=== PATIENT | male | born 1995 | race Caucasian/White ===

== ENCOUNTER 2018-01-15 14:30 | Outpatient (CLI) | payer BC, OTHER ==
[2018-01-15 18:59] LABS: BASOPHILS % (AUTO) 0.8 %; EOSINOPHILS # (AUTO) 0.1 10^3/uL (0.0-0.7); EOSINOPHILS % (AUTO) 1.7 %; HGB - HEMOGLOBIN 15.2 g/dL (14.0-18.0); LYMPHOCYTES # (AUTO) 1.8 10^3/uL (1.5-3.5); LYMPHOCYTES % (AUTO) 38.3 %; MEAN CORPUSCULAR HEMOGLOBIN 30.2 pg (27.0-31.0); MEAN CORPUSCULAR HGB CONC 34.4 g/dL (32.0-36.0); MEAN CORPUSCULAR VOLUME 87.7 fL (80.0-94.0); MEAN PLATELET VOLUME 9.1 fL (7.4-11.4); MONOCYTES # (AUTO) 0.5 10^3/uL (0.0-1.0); MONOCYTES % (AUTO) 10.7 %; NEUTROPHILS # (AUTO) 2.2 10^3/uL (1.5-6.6); NEUTROPHILS % (AUTO) 48.5 %; PLT - PLATELET COUNT 195 10^3/uL (130-450); RED BLOOD COUNT 5.04 10^6/uL (4.70-6.10); RED CELL DISTRIBUTION WIDTH 13.6 % (12.0-15.0); WHITE BLOOD COUNT 4.6 x10^3/uL (4.8-10.8)
[2018-01-15 19:13] LABS: ALBUMIN 4.2 g/dL (3.2-5.5); ALBUMIN/GLOBULIN RATIO 1.4 (1.0-2.2); ALKALINE PHOSPHATASE 41 IU/L (42-121); ALT ALANINE AMINOTRANSFERASE 72 IU/L (10-60); AST ASPARTATE AMINOTRANSFERASE 37 IU/L (10-42); BUN - BLOOD UREA NITROGEN 17 mg/dL (6-20); CARBON DIOXIDE - CO2 27 mmol/L (21-32); CHLORIDE 100 mmol/L (101-111); CHOL/HDL RATIO 7.1 (<5.0); CHOLESTEROL 228 mg/dL; CREATININE 0.7 mg/dL (0.6-1.2); GFR - MDRD 140 (>89); GLUCOSE 88 mg/dL (70-100); HDL CHOLESTEROL 32 mg/dL; LDL CHOLESTEROL,CALCULATED 150 mg/dL; LDL/HDL RATIO 4.7 (<3.6); SODIUM 136 mmol/L (135-145); TOTAL PROTEIN 7.3 g/dL (6.7-8.2); VLDL CHOLESTEROL 46 mg/dL
[2018-01-15 19:26] LABS: THYROID STIMULATING HORMONE 1.01 uIU/mL (0.34-5.60)
[2018-01-15 19:28] LABS: HB2 TOTAL 16.3 g/dL; HEMOGLOBIN A1C 0.6 g/dL; HEMOGLOBIN A1C % 5.5 % (4.6-6.2)
== END 2018-01-15 14:31 | disposition home or self-care (01) ==
LOC: LAB.WCP 14:30
PROVIDERS: ATTEND Family Medicine
DX: Z00.00 Encounter for general adult medical examination without abnormal findings (principal); Z13.220 Encounter for screening for lipoid disorders; Z13.1 Encounter for screening for diabetes mellitus
CPT/HCPCS: 36415; 80050; 80061; 82306; 82607; 82746; 83036; 83721

== ENCOUNTER 2018-05-31 11:55 | Outpatient (CLI) | payer BC ==
[2018-05-31 18:53] LABS: BASOPHILS % (AUTO) 0.7 %; EOSINOPHILS # (AUTO) 0.1 10^3/uL (0.0-0.7); HGB - HEMOGLOBIN 15.3 g/dL (14.0-18.0); LYMPHOCYTES # (AUTO) 2.3 10^3/uL (1.5-3.5); LYMPHOCYTES % (AUTO) 38.2 %; MEAN CORPUSCULAR HEMOGLOBIN 29.5 pg (27.0-31.0); MEAN CORPUSCULAR HGB CONC 32.6 g/dL (32.0-36.0); MEAN CORPUSCULAR VOLUME 90.6 fL (80.0-94.0); MEAN PLATELET VOLUME 9.6 fL (7.4-11.4); MONOCYTES # (AUTO) 0.6 10^3/uL (0.0-1.0); MONOCYTES % (AUTO) 10.5 %; NEUTROPHILS % (AUTO) 49.6 %; PLT - PLATELET COUNT 225 10^3/uL (130-450); RED BLOOD COUNT 5.18 10^6/uL (4.70-6.10); RED CELL DISTRIBUTION WIDTH 13.5 % (12.0-15.0)
[2018-05-31 19:22] LABS: TROPONIN I < 0.04 ng/mL (<0.49)
[2018-05-31 19:24] LABS: CREATINE KINASE MB 4.1 ng/mL (0.6-6.3)
[2018-05-31 19:32] LABS: ALBUMIN 4.4 g/dL (3.2-5.5); ALBUMIN/GLOBULIN RATIO 1.6 (1.0-2.2); ALKALINE PHOSPHATASE 65 IU/L (42-121); ALT ALANINE AMINOTRANSFERASE 83 IU/L (10-60); AST ASPARTATE AMINOTRANSFERASE 41 IU/L (10-42); BILIRUBIN,TOTAL 0.8 mg/dL (0.2-1.0); BUN - BLOOD UREA NITROGEN 13 mg/dL (6-20); CALCIUM 8.9 mg/dL (8.5-10.3); CARBON DIOXIDE - CO2 27 mmol/L (21-32); CHLORIDE 101 mmol/L (101-111); CHOL/HDL RATIO 5.4 (<5.0); CHOLESTEROL 195 mg/dL; CREATININE 0.8 mg/dL (0.6-1.2); GFR - MDRD 119 (>89); GLUCOSE 81 mg/dL (70-100); HDL CHOLESTEROL 36 mg/dL; LDL CHOLESTEROL,CALCULATED 121 mg/dL; LDL/HDL RATIO 3.4 (<3.6); SODIUM 136 mmol/L (135-145); TOTAL PROTEIN 7.2 g/dL (6.7-8.2); VLDL CHOLESTEROL 38 mg/dL
== END 2018-05-31 23:59 | disposition home or self-care (01) ==
LOC: LAB.WCP 11:55
PROVIDERS: ATTEND Family Medicine
DX: R07.89 Other chest pain (principal); E55.9 Vitamin D deficiency, unspecified; E78.5 Hyperlipidemia, unspecified
CPT/HCPCS: 36415; 80053; 80061; 82306; 82553; 83721; 84484; 85025; 85379

== ENCOUNTER 2019-08-15 17:58 | Outpatient (CLI) | payer BC | END 2019-08-15 17:59 | disposition short-term general hospital (02) | LOC: EMS 17:58 | PROVIDERS: ATTEND Surgery | DX: R20.0 Anesthesia of skin (principal); R94.31 Abnormal electrocardiogram [ECG] [EKG] | CPT/HCPCS: A0425; A0427 ==

== ENCOUNTER 2022-12-29 13:40 | Outpatient (CLI) | payer BC ==
--- NOTE | 2022-12-29 19:56 | XRAY Report ---
PROCEDURE: Ankle 3 View RT INDICATIONS: SPRAIN OF UNSPECIFIED LIGAMENT OF RIGHT ANKLE TECHNIQUE: 3 views of the ankle were acquired. COMPARISON: None. FINDINGS: Bones: Transverse fracture of the distal fibular metaphysis extending into the mortise joint. There is no significant displacement. No widening of the mortise joint. The distal tibia is intact. Posteri or and plantar calcaneal enthesophytes are present. Soft tissues: Soft tissue edema is seen over the lateral malleolus. IMPRESSION: Nondisplaced transverse intra-articular fracture of the distal fibula. Reviewed by: Umesh Guzman MD on 12/29/2022 7:55 PM PDT Approved by: Umesh Guzman MD on 12/29/2022 7:55 PM PDT Station ID: [id number]
== END 2022-12-29 13:41 | disposition home or self-care (01) ==
LOC: DI 13:40
PROVIDERS: ATTEND Physician Assistant Medical
DX: S82.424A Nondisplaced transverse fracture of shaft of right fibula, initial encounter for closed fracture (principal)

== ENCOUNTER 2023-01-08 18:54 | Emergency (ER) | payer BC ==
[2023-01-08 19:08] VITALS: O2SAT 98
[2023-01-08 19:33] LABS: BASOPHILS # (AUTO) 0.1 10^3/uL (0.0-0.1); BASOPHILS % (AUTO) 0.5 %; EOSINOPHILS # (AUTO) 0.1 10^3/uL (0.0-0.7); EOSINOPHILS % (AUTO) 1.2 %; HCT - HEMATOCRIT 45.9 % (42.0-52.0); HGB - HEMOGLOBIN 15.3 g/dL (14.0-18.0); LYMPHOCYTES # (AUTO) 3.6 10^3/uL (1.5-3.5); LYMPHOCYTES % (AUTO) 34.6 %; MEAN CORPUSCULAR HEMOGLOBIN 29.1 pg (27.0-31.0); MEAN CORPUSCULAR HGB CONC 33.3 g/dL (32.0-36.0); MEAN CORPUSCULAR VOLUME 87.4 fL (80.0-94.0); MEAN PLATELET VOLUME 10.5 fL (7.4-11.4); MONOCYTES # (AUTO) 0.9 10^3/uL (0.0-1.0); NEUTROPHILS # (AUTO) 5.6 10^3/uL (1.5-6.6); NEUTROPHILS % (AUTO) 54.4 %; PLT - PLATELET COUNT 261 10^3/uL (130-450); RED BLOOD COUNT 5.25 10^6/uL (4.70-6.10); RED CELL DISTRIBUTION WIDTH 12.7 % (12.0-15.0); WHITE BLOOD COUNT 10.3 x10^3/uL (4.8-10.8)
--- NOTE | 2023-01-08 19:37 | ED Physician Documentation ---
PD HPI CHEST PAIN - Stated complaint Stated Complaint: CHEST PX - Chief complaint Chief Complaint: Cardiac - History obtained from History obtained from: Patient - Additional information Additional information: 27-year-old male with no significant past medical history presents with chest discomfort. Is been present intermittently over the last 3 to 4 days. It is described as pressure in the center of his chest with some "pinching" on both the right and left upper chest. It occurs mostly at work and is not associated with physical exertion, deep breath, or p.o. intake. He has no associated sy mptoms such as weakness, diaphoresis, dyspnea, nausea, vomiting. He states he has had similar symptoms periodically over the last several months but seemed to notice it more recently. He states he has had some sort of cardiac evaluation in the past as he had some left shoulder numbness that his PCP was concerned was related to his heart as he was sent to [facility] and [facility] and he states that t heir workup there was normal and he was told it was "related to stress." Patient does not smoke, he has no history of hypertension or diabetes, no history of personal heart disease. He does have a strong family history of heart disease with his mom dying age 51 from "pulmonary edema," and he believes that she had a heart attack as well. His maternal grandmother in her late 40s from some sort of heart disease and grandfathers on the other side of his family who also have had heart disease at a later age. He is unsure of his father's history as he is not involved in his life. PD PAST MEDICAL HISTORY - Past Medical History Past Medical History: No - Past Surgical History Past Surgical History: Yes HEENT: Tonsil/Adenoidectomy - Present Medications Home Medications: Ambulatory Orders Medication Instructions Recorded Confirmed No Known Home Medications 01/08/23 01/08/23 - Allergies Allergies/Adverse Reactions: Allergies Allergy/AdvReac Type Severity Reaction Status Date / Time No Known Drug Allergies Allergy Verified 01/08/23 19:03 - Social History Does the pt smoke?: No Smoking Status: Never smoker - Immunizations Immunizations are current?: Yes - POLST Patient has POLST: No PD ED PE NORMAL - Vitals Vital signs reviewed: Yes - General General: Alert and oriented X 3, No acute distress, Well developed/nourished - HEENT HEENT: Atraumatic, Moist mucous membranes - Neck Neck: Supple, no meningeal sign, No JVD - Cardiac Cardiac: RRR, No murmur, No gallop, No rub, Strong equal pulses - Respiratory Respiratory: No respiratory distress, Clear bilaterally - Abdomen Abdomen: Normal bowel sounds, Soft, Non tender, Non distended - Derm Derm: Normal color, Warm and dry, No rash - Extremities Extremities: No calf tenderness / cord, Other (right lower leg in walking boot (recent ankle facture, no surgery, in walking boot). ) - Neuro Neuro: Alert and oriented X 3 Eye Opening: Spontaneous Motor: Obeys Commands Verbal: Oriented GCS Score: 15 - Psych Psych: Normal mood, Normal affect Results - Vitals Vitals: Vital Signs - 24 hr 01/08/23 19:00 Temperature 37.2 C Heart Rate 108 H Respiratory 15 Rate Blood Pressure 170/94 H O2 Saturation 98 Oxygen O2 Source Room air - EKG (time done) No standard instances EKG releavant findings:: EKG personally interpreted by author of this note. Relevant findings are: Rate: Rate (enter#) (94) Rhythm: NSR [place]: Normal Intervals: Normal PA QRS: Normal Ischemia: ST elevation c/w repol Compare to prior EKG: Old EKG unavailable Computer interpretation: Agree with computer - Labs Labs: Laboratory Tests 01/08/23 01/08/23 19:22 19:22 WBC 10.3 RBC 5.25 Hgb 15.3 Hct 45.9 MCV 87.4 MCH 29.1 MCHC 33.3 RDW 12.7 Plt Count 261 MPV 10.5 Neut # (Auto) 5.6 Lymph # (Auto) 3.6 H [place] # (Auto) 0.9 Eos # (Auto) 0.1 Baso # (Auto) 0.1 Absolute Nucleated RBC 0.00 Nucleated RBC % 0.0 Sodium 136 Potassium 4.2 Chloride 100 L Carbon Dioxide 28 Anion Gap 8.0 BUN 12 Creatinine 0.8 Estimated GFR (MDRD) 115 Glucose 111 H Calcium 9.8 Total Bilirubin 0.4 AST 24 ALT 59 Alkaline Phosphatase 70 Troponin I High Sens 6.3 Total Protein 7.5 Albumin 4.6 Globulin 2.9 Albumin/Globulin Ratio 1.6 Lipase 25 - Rads (name of study) No standard instances Relevant Findings:: Final report received PD Medical Decision Making - ED course Complexity details: reviewed old records, reviewed results, re-evaluated patient, considered differential, d/w patient ED course: 27-year-old male presents with several days of intermittent chest pressure as de scribed in HPI. He is well-appearing on physical exam here, and currently does not have any symptoms. We obtained a cardiac workup to rule out ACS, and this is reassuring, troponin is negative, CBC and CMP otherwise normal. His chest x- ray is negative, EKG showing sinus rhythm, nonspecific ST elevation likely early repull, no acute ischemic changes. He did initially have some hypertension that improved throughout his ER stay. He has no signs of pneumonia or pneumothorax on chest xray. His PERC is negative. This is likely noncardiac, but I am have recommended that the patient schedule an evaluation with cardiology given his strong family history of heart disease, some of which was at a early age. The patient himself does not smoke, has no history of hypertension or diabetes or other risk factors other than family history, though his BP was elevated here today and he was advised to see PCP for BP follow up as well. He was encouraged to Follow-up with PCP in the next week or 2, and obtain referrals for cardiology If needed. Departure - Departure Disposition: 01 Home, Self Care Clinical Impression: Atypical chest pain Condition: Good Instructions: ED Chest Pain Atypical Unkn Cause Follow-Up: JUAN R NICE DO, MBA [Physician No Access] - Comments: Your workup today is generally reassuring, your labs are stable, your chest x- ray is normal, your EKG shows no acute heart attack. I do recommend however that you follow-up with the [facility]in[facility] as we discussed given your reported family history of heart disease. This can be done via your PCP or potentially you can call the cardiology office directly. You did have elevated blood pressure here though it improved through your ER stay. Please see PCP for BP follow up as well and they may start you on medication if still elevated. If you have new or worsening symptoms, return to the ER. Forms: PCP List
[2023-01-08 19:44] LABS: ALBUMIN 4.6 g/dL (3.2-5.5); ALBUMIN/GLOBULIN RATIO 1.6 (1.0-2.2); BILIRUBIN,TOTAL 0.4 mg/dL (0.2-1.0); CALCIUM 9.8 mg/dL (8.5-10.3); CREATININE 0.8 mg/dL (0.6-1.3); POTASSIUM 4.2 mmol/L (3.5-4.5); TOTAL PROTEIN 7.5 g/dL (6.4-8.9)
[2023-01-08 19:48] LABS: TROPONIN I HIGH SENSITIVITY 6.3 ng/L (2.3-19.7)
--- NOTE | 2023-01-08 19:58 | XRAY Report ---
PROCEDURE: Chest 1 View X-Ray INDICATIONS: chest pain TECHNIQUE: One view of the chest was acquired. COMPARISON: None. FINDINGS: Surgical changes and devices: None. Lungs and pleura: No pleural effusions or pneumothorax. Lungs are clear. Mediastinum: Mediastinal contours appear normal. Heart size is normal. Bones and chest wall: No suspicious bony lesions. Overlying soft tissues appear unremarkable. IMPRESSION: No acute cardiopulmonary process. Reviewed by: Red Hitchcock MD on 01/08/2023 7:57 PM PDT Approved by: Red Hitchcock MD on 01/08/2023 7:57 PM PDT Station ID: [id number]
[2023-01-08 20:39] VITALS: BP 164/97
== END 2023-01-08 20:30 | disposition home or self-care (01) ==
LOC: ED 18:54
DX: R07.89 Other chest pain (principal); Z82.49 Family history of ischemic heart disease and other diseases of the circulatory system
CPT/HCPCS: 36415; 80053; 83690; 84484; 85025; 93005; 99283; 99284